=== PATIENT | male | born 1965 | race Hispanic/Latino ===

== ENCOUNTER 2019-04-09 01:10 | Day surgery (SDC) | payer BC, SELFPAY ==
[2019-04-07 12:47] VITALS: BMI 34.1
[2019-04-09] MEDS: LACTATED RINGERS 1,000 ML 150 ML IV CONT (06:49)
[2019-04-09 07:04] LABS: Glucose Point of Care 251 (65-105)
[2019-04-09 07:07] VITALS: BP 138/90; PULSE 94; RESP 17; TEMP 36.5; O2SAT 98; BMI 33.5
--- NOTE | 2019-04-09 07:12 | P.PNAN_ITS ---
Anes - Initial Pre Proc Eval Procedure: Operation Date: 04/09/19 07:30 Proposed Procedures p Screening Colonoscopy - Nakul Byrne MD Date/Time: 04/09/19 07:12 Surgeon: Nakul Byrne MD Pre Op Diagnosis: Neoplasm Screening Patient Data Age: 53 Gender: M Height: 5 ft 10 in Weight: 105.8 kg Last Vital Signs Temp 97.7 F 04/09/19 07:07 Pulse 94 04/09/19 07:07 Resp 17 04/09/19 07:07 BP 138/90 04/09/19 07:07 Pulse Ox 98 04/09/19 07:07 Allergies Allergy/AdvReac Type Severity Reaction Status Date / Time No Known Allergies Allergy Verified 04/09/19 06:40 Home Medications Medication Instructions Recorded Confirmed Type atorvastatin 10 mg PO DAILY 04/07/19 04/09/19 History gabapentin 300 mg PO PRN PRN 04/07/19 04/09/19 History insulin asp prt-insulin aspart 40 unit SUBCUT TID 04/07/19 04/09/19 History [Novolog Mix 70-30 U-100 Insuln] lisinopril 10 mg PO DAILY 04/07/19 04/09/19 History metformin 1,500 mg PO DAILY 04/07/19 04/09/19 History semaglutide [Ozempic] 0.25 mg SUBCUT WEEKLY 04/07/19 04/09/19 History Laboratory Tests 04/09/19 07:01 POC Capillary Glucose 251 mg/dl H mg/dl (65-105) Patient hx anesthesia problems: none Family hx anesthesia problems: none [facility] Past Medical History Medical History (Updated 04/09/19 @ 07:12 by Immanuel Welch MD) Diabetes Hyperlipidemia Hypertension Kidney stone Social History Social History (Updated 02/14/19 @ 09:33 by Mayuri Meléndez) Smoking status: Smoker, status unknown Anes - Eval Final PreProcedure Day of Procedure 04/09/19 07:12 Patient weight: obese Heart: regular rate and rhythm Lungs: clear to auscultation Airway: Mallampati scale class 1 Neurological: alert and oriented Last oral intake: >/= 8 hours ASA classification: III Emergent: no Anesthetic plan: proceed Anesthesia type and monitoring: general GIVS and standard monitoring Informed Consent: The patient's anesthetic plan and its attendant risks and benefits were discussed with the patient/family/POA. Questions were solicited and answers provided to the satisfaction of the patient/family/POA.
[2019-04-09] MEDS: SIMETHICONE ORAL SUSPENSION 20 MG/0.3 ML 30 ML BOTTLE 0.6 ML IRRIGATION (07:43)
--- NOTE | 2019-04-09 07:51 | P.CONGI_ITS ---
Assessment and Plan Additional Plan This is a 53-year-old male patient seen in evaluation at the request of Dr. Aleksandr DO. Patient presents for neoplasia screening colonoscopy. His current weight appetite bowel movements are normal. He denies any blood in his stools. He denies abdominal pain. His weight has remained stable. He has normal bowel habits. Family history is significant his brother had colon polyps. Past medical history is significant for diabetes, elevated cholesterol, hypertension. Current medications include insulin, metformin, gabapentin, atorvastatin, lisinopril, Ozempic. He has no stated drug allergies. Physical exam reveals patient to be alert oriented x3. Vital signs stable. HEENT exam unremarkable. He is anicteric. Lungs are clear to auscultation and percussion. Heart is without murmur or extra sounds. Abdominal exam bowel sounds are present soft nontender with no organomegaly. Digital external rectal exam is normal. Impression 1. Family history of colon polyps. 2. Neoplasia screening. 3. Metabolic syndrome with diabetes, hypertension,high cholesterol. Plan is for screening colonoscopy now. Given his family history we may need to consider this in 5 years. GI Consult Note Consult date/time: 04/09/19 07:51 HPI: Abdoulaye Espinal is a 53 year old male [facility] Past Medical History Medical History (Updated 04/09/19 @ 07:12 by Immanuel Welch MD) Diabetes Hyperlipidemia Hypertension Kidney stone Social History Social History (Updated 02/14/19 @ 09:33 by Mayuri Meléndez) Smoking status: Smoker, status unknown Meds Home Medications and Allergies Home Medications Medication Instructions Recorded Confirmed Type atorvastatin 10 mg PO DAILY 04/07/19 04/09/19 History gabapentin 300 mg PO PRN PRN 04/07/19 04/09/19 History insulin asp prt-insulin aspart 40 unit SUBCUT TID 04/07/19 04/09/19 History [Novolog Mix 70-30 U-100 Insuln] lisinopril 10 mg PO DAILY 04/07/19 04/09/19 History metformin 1,500 mg PO DAILY 04/07/19 04/09/19 History semaglutide [Ozempic] 0.25 mg SUBCUT WEEKLY 04/07/19 04/09/19 History Allergies Allergy/AdvReac Type Severity Reaction Status Date / Time No Known Allergies Allergy Verified 04/09/19 06:40 Vital Signs Vital Signs - 24 hr 04/09/19 07:07 Temperature 36.5 C Pulse Rate 94 Respiratory Rate 17 Blood Pressure 138/90 Pulse Oximetry 98
[2019-04-09 07:54] VITALS: BP 104/72; RESP 18; O2SAT 99
[2019-04-09 08:04] VITALS: BP 117/76; RESP 16; O2SAT 100
[2019-04-09 08:10] LABS: Glucose Point of Care 226 (65-105)
[2019-04-09 08:14] VITALS: BP 123/83; RESP 19; O2SAT 99
== END 2019-04-09 08:34 | disposition home or self-care (01) ==
PROVIDERS: PCP Student in an Organized Health Care Education/Training Program; Visit Provider Internal Medicine Gastroenterology
PROC: 0DJD8ZZ Inspection of Lower Intestinal Tract, Via Natural or Artificial Opening Endoscopic (ICD-10-PCS; CPT 45378; principal; 2019-04-09 07:30)
DX: Z12.11 Encounter for screening for malignant neoplasm of colon (principal); K64.8 Other hemorrhoids; Z83.71 Family history of colonic polyps; I10 Essential (primary) hypertension; E88.81 Metabolic syndrome and other insulin resistance; E11.9 Type 2 diabetes mellitus without complications; E78.00 Pure hypercholesterolemia, unspecified; Z79.4 Long term (current) use of insulin; Z79.84 Long term (current) use of oral hypoglycemic drugs; E66.9 Obesity, unspecified; Z68.33 Body mass index [BMI] 33.0-33.9, adult
CPT/HCPCS: 45378; J2704; J7120

== ENCOUNTER 2019-09-05 11:49 | Emergency (ER) | payer BC, SELFPAY ==
[2019-09-05 12:02] VITALS: BP 145/79; PULSE 94; RESP 16; TEMP 36.2; O2SAT 98
--- NOTE | 2019-09-05 12:40 | ED.SKABFB ---
HPI - Skin/Abscess/Foreign Bdy General Chief complaint: Skin/Abscess/Foreign Body Stated complaint: pos toe infection Time Seen by Provider: 09/05/19 12:40 Source: RN notes reviewed Mode of arrival: ambulatory Limitations: no limitations History of Present Illness HPI narrative: 54-year-old male who presents to express care with complaints of scratching his right great toe on something [place]. He states that he also cut his right great toe nail on Sunday to allow better cleansing of wound area. Patient states has had swelling and redness to the right outer aspect of the great right toe extending up into distal toe with no indurating of tissue but redness and some edema. Patient is diabetic and is concerned of infection to toe, has been cleansing wound area with alcohol and applying neosporin ointment and covering with bandaide, states no pain to toe but has some diabetic neuropathy to his feet. MD complaint: other (cellulitus) Onset (ago): day(s) (5) Tetanus up to date: yes Location: R foot (great toe) Quality: other (no pain stated) Exacerbating factors: none Context: other (scrapped toe while kayaking and also cut outer nail) Treatments prior to arrival: bandages, OTC topical medication and other (cleansed with alcohol) Related Data Home Medications Medication Instructions Recorded Confirmed atorvastatin 10 mg PO DAILY 09/05/19 09/05/19 gabapentin 300 mg PO HS 09/05/19 09/05/19 insulin regular human [Novolin R See Rx Instructions .ROUTE .COMPLEX 09/05/19 09/05/19 Regular U-100 Insuln] lisinopril 10 mg PO DAILY 09/05/19 09/05/19 metformin 500 mg PO DAILY 09/05/19 09/05/19 Allergies Allergy/AdvReac Type Severity Reaction Status Date / Time No Known Allergies Allergy Verified 09/05/19 12:00 Review of Systems Review of Systems: Narrative: CONSTITUTIONAL: Denies fever, chills, or sweats. EYES: Denies visual changes, redness, or discharge. ENT: Denies rhinorrhea, congestion, sore throat, or otalgia. CARDIOVASCULAR: Denies chest pain, palpitations, or edema. RESPIRATORY: Denies cough or dyspnea. GASTROINTESTINAL: Denies abdominal pain, nausea, vomiting, or diarrhea. GENITOURINARY: Denies dysuria or hematuria. SKIN: red swollen right outer great toe extending to distal toe region MUSCULOSKELETAL: Denies back pain, joint pain, or myalgia. NEUROLOGIC: Denies headache, numbness, or weakness. PSYCHIATRIC: Denies anxiety or depression. All systems reviewed & are unremarkable except as noted in HPI and below PMFSH Past Medical History Medical History (Updated 09/08/19 @ 09:56 by Devora Walden NP) Diabetes Diabetic neuropathy Hyperlipidemia Hypertension Family History Family History Father Diabetes mellitus Hypertension Mother Diabetes mellitus Social History Social History (Updated 09/08/19 @ 09:46 by Devora Walden NP) Smoking status: Never smoker Alcohol intake: current Living arrangements: with family Gender identity (if verbalized by the patient): Male Comments At time of signature, agree with nursing past medical, social and family history. There is no relevant family history pertinent to the presenting complaint Exam Narrative: Exam Narrative: GENERAL: Well-appearing, well-nourished, and in no acute distress. HEAD: Normocephalic, atraumatic. EYES: PERRLA and EOMI. ENT: Nares clear, no rhinorrhea or epistaxis. Mucous membranes moist. NECK: Supple. CHEST: Clear to auscultation. No respiratory distress.SAO2 98% on room air HEART: Regular rate and rhythm. No murmur heard. Normal peripheral pulses but history of peripheral neuropathy related to diabetes. ABDOMEN: Soft, nontender, nondistended, normal active bowel sounds. EXTREMITIES: Normal range of motion. No edema except to right great toe, mobility intact palpable pedal pulse right foot SKIN: Warm, dry, red swollen right great toe with no induration of ti
== END 2019-09-05 13:12 | disposition home or self-care (01) ==
PROVIDERS: Emergency Provider Registered Nurse; PCP Student in an Organized Health Care Education/Training Program
DX: L03.031 Cellulitis of right toe (principal); E11.42 Type 2 diabetes mellitus with diabetic polyneuropathy; Z79.4 Long term (current) use of insulin; Z79.84 Long term (current) use of oral hypoglycemic drugs; E78.5 Hyperlipidemia, unspecified; I10 Essential (primary) hypertension
CPT/HCPCS: 99213; G0463